=== PATIENT | female | born 1985 | race American Indian/Alaskan Native ===

== ENCOUNTER 2018-06-02 16:07 | Emergency (ER) | payer SELFPAY ==
[2018-06-02 17:23] VITALS: BP 118/78
--- NOTE | 2018-06-02 19:02 | Emergency Department Report ---
Minor Respiratory - HPI Chief Complaint: Sore Throat Stated Complaint: SERVE SORE THROAT/TONSILS Time Seen by Provider: 06/02/18 18:50 Duration: 5 Days Pain Location: Throat Severity: moderate Minor Respiratory: Yes Sore Throat, Yes Able to Tolerate Fluids, Yes Cough ( slight), No Rhinorrhea, No Ear Pain, No Sick Contacts, No Hemoptysis, No Chest Pain, No Shortness of Breath, No Fever Other History: sore throat x 5 days, slight cough. no fever ED Review of Systems ROS: Stated complaint: SERVE SORE THROAT/TONSILS Other details as noted in HPI Comment: All other systems reviewed and negative Constitutional: no symptoms reported ENT: as per HPI, throat pain Respiratory: cough ED Past Medical Hx - Past Medical History Previous Medical History?: No - Surgical History Past Surgical History?: No Additional Surgical History: breast reduction - Social History Smoking Status: Never Smoker Substance Use Type: None - Medications Home Medications: Home Medications Medication Instructions Recorded Confirmed Last Taken Type Amoxicillin 500 mg PO TID #30 capsule 06/02/18 Unknown Rx predniSONE [Prednisone] 50 mg PO DAILY #5 tablet 06/02/18 Unknown Rx Minor Respiratory Exam - Exam General: Vital signs noted. No distress. Alert and acting appropriately. HEENT: Yes Pharyngeal Erythema (4+ tonsils, uvula midline, no trismus, no abscess), Yes Pharyngeal Exudates, Yes Moist Mucous Membranes, No Rhinorrhea, No Conjuctival Injection, No Frontal Tenderness, No Maxillary Tenderness Ear: Neither TM Bulge, Neither TM Erythema, Neither EAC Pain, Neither EAC Discharge Neck: Yes Adenopathy, Yes Supple Lungs: Yes Good Air Exchange, No Wheezes, No Ronchi, No Stridor, No Cough, No Labored Respirations, No Retractions, No Use of Accessory Muscles, No Other Abnormal Lung Sounds Heart: Yes Regular, No Murmur Abdomen: Yes Normal Bowel Sounds, No Tenderness, No Peritoneal Signs Skin: No Rash, No Edema Neurologic: Alert and oriented, no deficits. Musculoskeletal: Unremarkable. ED Course Vital Signs 06/02/18 17:19 Temperature 99.1 F Pulse Rate 111 H Respiratory 16 Rate Blood Pressure 118/78 O2 Sat by Pulse 100 Oximetry ED Medical Decision Making - Lab Data + strep - Medical Decision Making sore throat x 5 days. strep +. 4+ tonsils on exam, no abscess. plan for abx, steroid, pcp f/u - Differential Diagnosis strep, tonsillitis, abscess Critical care attestation.: If time is entered above; I have spent that time in minutes in the direct care of this critically ill patient, excluding procedure time. ED Disposition Clinical Impression: Strep tonsillitis Disposition: TO HOME OR SELFCARE Is pt being admited?: No Condition: Good Instructions: Strep Throat (ED), Tonsillitis (ED) Prescriptions: Amoxicillin 500 mg PO TID #30 capsule predniSONE [Prednisone] 50 mg PO DAILY #5 tablet Referrals: JUAN MANUEL LOUIS MD [Staff Physician] - 3-5 Days Time of Disposition: 19:01
== END 2018-06-02 19:26 | disposition home or self-care (01) ==
LOC: ED 16:07
DX: J03.00 Acute streptococcal tonsillitis, unspecified (principal)
CPT/HCPCS: 87430; 99283